=== PATIENT | female | born 1990 | race African-American/Black ===

== ENCOUNTER 2017-09-03 16:34 | Emergency (ER) | payer OTHER ==
[2017-09-03 16:51] VITALS: BP 109/63; PULSE 85; RESP 18; TEMP 99.4
--- NOTE | 2017-09-03 17:12 | ED ---
URI HPI - General Chief Complaint: Recheck/Abnormal Lab/Rx Stated Complaint: congestion Time Seen by Provider: 09/03/17 16:59 Source: patient, RN notes reviewed Mode of arrival: ambulatory Limitations: no limitations - History of Present Illness Initial Comments: This is a 27-year-old female who presents to the emergency department with chief complaint of upper respiratory symptoms. Patient states that yesterday she developed a sore throat, nasal congestion, chest congestion, headache and cough. She denies any fevers or chills, difficulty breathing, abdominal pain, nausea or vomiting, diarrhea or constipation, dysuria or hematuria. She states that she has had a productive cough of clear sputum that appears red tinged. Denies any past medical history or history of asthma. She states that she has felt like she has been wheezing. Denies ear pain or facial pain. - Related Data Home Medications Medication Instructions Recorded Confirmed No Known Home Medications [No 09/03/17 09/03/17 Known Home Medications] Allergies Allergy/AdvReac Type Severity Reaction Status Date / Time No Known Allergies Allergy Verified 09/03/17 16:51 Review of Systems ROS Statement: Those systems with pertinent positive or pertinent negative responses have been documented in the HPI. ROS Other: All systems not noted in ROS Statement are negative. Past Medical History Past Medical History: Pneumonia History of Any Multi-Drug Resistant Organisms: None Reported Past Surgical History: No Surgical Hx Reported Additional Past Surgical History / Comment(s): abdominal Past Psychological History: No Psychological Hx Reported Smoking Status: Current every day smoker Past Alcohol Use History: None Reported Past Drug Use History: None Reported General Exam - General Exam Comments Initial Comments: General: Awake and alert, well-developed; in no apparent distress. Sounds congested while speaking. HEENT: Head atraumatic, normocephalic. Pupils are equal, round and reactive to light. Extraocular movements intact. Oropharynx moist without erythema or exudate. Bilateral TMs are pearly without effusion. Neck: Supple. Normal ROM. Cardiovascular: Regular rate and rhythm. No murmurs, rubs or gallops. Chest symmetrical. Respiratory: Lungs clear to auscultation bilaterally. No wheezes, rales or rhonchi. Normal respiratory effort with no use of accessory muscles. Musculoskeletal: Normal ROM, no tenderness bilateral upper and lower extremities. Ambulating normally. Skin: [place], warm and dry without rashes or lesions. Neurological: Alert and oriented x3. CN II-XII grossly intact. Speech is fluent and answers are appropriate. No focal neuro deficits. Psychiatric: Normal mood and affect. No overt signs of depression or anxiety noted. Limitations: no limitations Course Vital Signs 09/03/17 16:49 Temperature 99.4 F Pulse Rate 85 Respiratory 18 Rate Blood Pressure 109/63 O2 Sat by Pulse 100 Oximetry Medical Decision Making - Medical Decision Making This is a 27-year-old female who presents to the emergency department with chief complaint of upper respiratory symptoms that began yesterday. On physical examination, oropharynx is non-erythematous, bilateral TMs are pearly without effusion and lungs are clear to auscultation bilaterally. Vital signs are stable and patient is afebrile. Chest x-ray was obtained and revealed no acute abnormalities. Patient likely suffering from a viral upper respiratory infection. Recommended rest, increasing fluid intake and [id number] medications. Patient will be discharged home at this time. She is in agreement and voices understanding. All questions were answered. - Radiology Data Radiology results: report reviewed Chest x-ray impression: Normal chest. Disposition Clinical Impression: Upper respiratory infection Disposition: HOME SELF-CARE Condition: Good Instructions: Upper Respiratory Infection (ED) Additional Instructions: Please follow up with primary care provider within 1-2 days. Return to emergency department if symptoms should worsen or any concerns arise. Is patient prescribed a controlled substance at d/c from ED?: No Referrals: None,Stated [Primary Care Provider] - 1-2 days Time of Disposition: 17:34
--- NOTE | 2017-09-03 17:27 | XR ---
EXAMINATION TYPE: XR chest 2V DATE OF EXAM: 09/03/2017 COMPARISON: NONE HISTORY: Cough and congestion TECHNIQUE: Frontal and lateral views of the chest are obtained. FINDINGS: Heart and mediastinum are normal. Lungs are clear. Diaphragm is normal. Bony thorax appear s normal. IMPRESSION: Normal chest
== END 2017-09-03 17:44 | disposition home or self-care (01) ==
LOC: EC 16:34
DX: J06.9 Acute upper respiratory infection, unspecified (principal); F17.200 Nicotine dependence, unspecified, uncomplicated
CPT/HCPCS: 71046; 99283

== ENCOUNTER 2017-10-15 05:14 | Emergency (ER) | payer OTHER ==
[2017-10-15] MEDS ORDERED: PROPARACAINE 0.5% OPHTH DROPS 15 ML BTL ONE (07:20)
[2017-10-15] MEDS ORDERED: PROPARACAINE 0.5% OPHTH DROPS 15 ML BTL RIGHT EYE STA (07:22)
[2017-10-15] MEDS ORDERED: TOBRAMYCIN 0.3% OPHTH DROPS 5 ML BTL RIGHT EYE STA (07:29)
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
[2017-10-15] MEDS ORDERED: ACET/COD 300 MG/30 MG STARTER PACK 6 TAB BTL PO STA (07:51)
[2017-10-15] MEDS ORDERED: Acetaminophen-Codeine 300-30mg TAB PO STA (07:52)
[2017-10-15 08:00] VITALS: BP 120/88; PULSE 82; RESP 18; TEMP 98.1
== END 2017-10-15 07:58 | disposition home or self-care (01) ==
LOC: EC 05:14
DX: H10.9 Unspecified conjunctivitis (principal); F17.200 Nicotine dependence, unspecified, uncomplicated
CPT/HCPCS: 99283

== ENCOUNTER 2018-02-23 06:55 | Emergency (ER) | payer OTHER ==
[2018-02-23 07:00] VITALS: BP 117/80; PULSE 82; RESP 19; TEMP 98.8
--- NOTE | 2018-02-23 07:16 | ED ---
General Adult HPI - General Chief complaint: Dental/Oral Stated complaint: Dental Pain Time Seen by Provider: 02/23/18 07:02 Source: patient, EMS, RN notes reviewed, old records reviewed Mode of arrival: EMS Limitations: no limitations - History of Present Illness Initial comments: 28 yo female presented for evaluation of left lower dental pain. Pain is been present for the past several days. She has noted some swelling in her left face associated with the pain. Patient does not currently have a dentist. She does have poor dentition and reports that this tooth was fractured some time ago. Patient is otherwise healthy, no chronic medical problems. - Related Data Previous Rx's Medication Instructions Recorded Ibuprofen [Motrin] 600 mg PO Q8HR PRN #24 tab 02/23/18 Allergies Allergy/AdvReac Type Severity Reaction Status Date / Time No Known Allergies Allergy Verified 10/15/17 05:20 Review of Systems ROS Statement: Those systems with pertinent positive or pertinent negative responses have been documented in the HPI. ROS Other: All systems not noted in ROS Statement are negative. Past Medical History Past Medical History: Pneumonia History of Any Multi-Drug Resistant Organisms: None Reported Past Surgical History: No Surgical Hx Reported Additional Past Surgical History / Comment(s): abdominal Past Psychological History: No Psychological Hx Reported Smoking Status: Current every day smoker Past Alcohol Use History: None Reported Past Drug Use History: None Reported General Exam Limitations: no limitations General appearance: alert, in no apparent distress Head exam: Present: atraumatic, normocephalic Eye exam: Present: normal appearance, PERRL, EOMI ENT exam: Present: normal oropharynx, other (Poor dentition throughout, left posterior inferior molars are tender to percussion, no abscess, no significant erythema. ) Neck exam: Present: normal inspection, full ROM. Absent: tenderness, meningismus Respiratory exam: Present: normal lung sounds bilaterally. Absent: respiratory distress, wheezes Cardiovascular Exam: Present: regular rate, normal rhythm GI/Abdominal exam: Present: soft. Absent: distended, tenderness Course Vital Signs 02/23/18 06:56 Temperature 98.8 F Pulse Rate 82 Respiratory 19 Rate Blood Pressure 117/80 O2 Sat by Pulse 100 Oximetry Medical Decision Making - Medical Decision Making 28-year-old female with dental pain. Patient does have fracture #17 molar. This is the tooth that is most painful for the patient although she has poor dentition throughout. She was seen at an outside facility yesterday prescribed Hamilton and amoxicillin. She took a Hamilton with minimal improvement and has not taken the amoxicillin although she still has this prescription available. She has not taken Motrin for pain. She will be prescribed Motrin and she will begin her amoxicillin prescription today. She is also given dental clinic follow-up information in the emergency department. Disposition Clinical Impression: Dental caries, Fracture of tooth Disposition: HOME SELF-CARE Condition: Good Instructions: Dental Caries (ED), Toothache (ED) Additional Instructions: Please follow up with dental referral. Prescriptions: Ibuprofen [Motrin] 600 mg PO Q8HR PRN #24 tab PRN Reason: Pain Is patient prescribed a controlled substance at d/c from ED?: No Referrals: None,Stated [Primary Care Provider] - 1-2 days Tyler Santiago MD [REFERRING] - 1-2 days Time of Disposition: 07:15
== END 2018-02-23 07:24 | disposition home or self-care (01) ==
LOC: EC 06:55
DX: S02.5XXA Fracture of tooth (traumatic), initial encounter for closed fracture (principal); K02.9 Dental caries, unspecified; F17.200 Nicotine dependence, unspecified, uncomplicated
CPT/HCPCS: 99283

== ENCOUNTER 2021-01-31 09:23 | Emergency (ER) | payer BC, OTHER ==
[2021-01-31 10:15] VITALS: RESP 18; TEMP 98.9
[2021-01-31 10:54] LABS: Appearance,Urine Cloudy (Clear); Bacteria,Urine Rare /hpf; Bilirubin,Urine Negative (Negative); Blood,Urine Negative (Negative); Color,Urine Yellow; Glucose,Urine (UA) Negative (Negative); Hyaline Casts,Urine 1 /lpf (0-2); Ketones,Urine Trace (Negative); Leukocyte Esterase,Urine Large (Negative); Mucus,Urine Few /hpf; Nitrite,Urine Negative (Negative); Protein,Urine Trace (Negative); RBC,Urine 3 /hpf (0-5); Specific Gravity,Urine 1.025 (1.001-1.035); Squamous Epithelial Cell,Urine 6 /hpf (0-4); WBC,Urine 17 /hpf (0-5)
[2021-01-31] MEDS ORDERED: metroNIDAZOLE 500 MG TAB PO STA (13:34)
[2021-01-31] MEDS ORDERED: cefTRIAXone 250 MG VIAL IM STA (13:34)
[2021-01-31] MEDS ORDERED: AZITHROMYCIN 250 MG TAB PO STA (13:34)
--- NOTE | 2021-01-31 13:42 | ED ---
General Adult HPI - General Chief complaint: Abdominal Pain Stated complaint: vomiting Time Seen by Provider: 01/31/21 11:51 Source: patient, RN notes reviewed Mode of arrival: ambulatory Limitations: no limitations - History of Present Illness Initial comments: Patient is a 31-year-old female presenting to emergency Department with complaints of lower abdominal discomfort, vaginal complaints as well. She states about 2 days ago she noticed some vaginal irritation, white, thick discharge, and foul odor. She complains of some mild urinary frequency but no dysuria. She denies any fevers or chills, no sharp shooting abdominal pain. She does admit to being with a new partner, having unprotected intercourse. She is concerned for an STD. She denies any nausea or vomiting. She has no further complaints at this time. Upon arrival to the ER her vitals are stable. - Related Data Home Medications Medication Instructions Recorded Confirmed No Known Home Medications 01/31/21 01/31/21 Allergies Allergy/AdvReac Type Severity Reaction Status Date / Time No Known Allergies Allergy Verified 01/31/21 13:19 Review of Systems ROS Statement: Those systems with pertinent positive or pertinent negative responses have been documented in the HPI. ROS Other: All systems not noted in ROS Statement are negative. Past Medical History Past Medical History: Pneumonia History of Any Multi-Drug Resistant Organisms: None Reported Past Surgical History: No Surgical Hx Reported Additional Past Surgical History / Comment(s): abdominal Past Psychological History: No Psychological Hx Reported Smoking Status: Current every day smoker Past Alcohol Use History: None Reported Past Drug Use History: None Reported General Exam - General Exam Comments Initial Comments: GENERAL: Patient is well-developed and well-nourished. Patient is nontoxic and in no acute distress. HEAD: Atraumatic, normocephalic. EYES: Pupils equal round and reactive to light, extraocular movements intact, sclera anicteric, conjunctiva are normal. Eyelids were unremarkable. LUNGS: Unlabored respirations. Breath sounds clear to auscultation bilaterally and equal. No wheezes rales or rhonchi. HEART: Regular rate and rhythm without murmurs, rubs or gallops. ABDOMEN: Soft, nontender, normoactive bowel sounds. No guarding, no rebound. No masses appreciated. MUSCULOSKELETAL: Normal extremities with adequate strength and normal range of motion, no pitting or edema. No clubbing or cyanosis. NEUROLOGICAL: Patient is alert and oriented x 3. SKIN: Warm, Dry, normal turgor, no rashes or lesions noted. Limitations: no limitations External exam: Present: normal external exam Speculum exam: Present: cervical discharge (small amounts of white discharge/slight odor present). Absent: vaginal bleeding, foreign body By manual exam: Present: normal by manual exam Course Vital Signs 01/31/21 10:11 Temperature 98.9 F Pulse Rate 73 Respiratory 18 Rate Blood Pressure 119/71 O2 Sat by Pulse 100 Oximetry Medical Decision Making - Medical Decision Making Patient is a 31-year-old female presenting for vaginal irritation, abnormal discharge over the past 2-3 days. No fevers, or vitals are stable. No snuff can abdominal pain on palpation. Pelvic exam revealed whitish discharge, slight odor. Urine showed a few WBCs, rare bacteria. Urine culture is pending. Trichomonas swab is positive. I discussed these findings with the patient. She would like to be treated for gonorrhea and Chlamydia as a precaution. These labs are still pending as well as genital culture. Patient will be given a course of Flagyl, Rocephin, azithromycin. She is stable for discharge at this time. We discussed using protection, having partner tested and treated as well. She is agreeable to this plan of care and she is stable for discharge. - Lab Data Lab Results 01/31/21 01/31/21 01/31/21 Range/Units 10:19 12:29 12:29 Urine Color Yellow Urine Appearance Cloudy H (Clear) Urine pH 6.0 (5.0-8.0) Ur Specific [place] 1.025 (1.001-1.035) Urine Protein Trace H (Negative) Urine Glucose (UA) Negative (Negative) Urine Ketones Trace H (Negative) Urine Blood Negative (Negative) Urine Nitrite Negative (Negative) Urine Bilirubin Negative (Negative) Urine Urobilinogen 2.0 (<2.0) mg/dL Ur Leukocyte Esterase Large H (Negative) Urine RBC 3 (0-5) /hpf Urine WBC 17 H (0-5) /hpf Ur Squamous Epith Cells 6 H (0-4) /hpf Urine Bacteria Rare H (None) /hpf Hyaline Casts 1 (0-2) /lpf Urine Mucus Few H (None) /hpf Urine HCG, Qual Not Detected (Not Detectd) Trichomonas Ag (Rapid) Positive H (Negative) Disposition Clinical Impression: Vaginal discharge, Trichomonas infection Disposition: HOME SELF-CARE Condition: Stable Instructions (If sedation given, give patient instructions): Trichomoniasis (ED) Additional Instructions: Please return to the Emergency Department if symptoms worsen or any other concerns. Gonorrhea, chlamydia, genital culture swabs are still pending at this time. You were treated today for Trichomonas. Gonorrhea and chlamydia were treated as a precaution. Partner should be treated as well. Please follow-up with your [employer] TECHNICIAN. Is patient prescribed a controlled substance at d/c from ED?: No Referrals: None,Stated [Primary Care Provider] - 1-2 days Time of Disposition: 13:42
[2021-01-31 14:31] VITALS: BP 120/81; PULSE 72
[2021-02-01 14:53] LABS: C. trachomatis,PCR Negative (Neg,Equiv); Chlamydia trachomatis Source Cervix; N. gonorrhoeae,PCR Negative (Neg,Equiv); Neisseria Source Cervix
== END 2021-01-31 14:27 | disposition home or self-care (01) ==
LOC: EC 09:23
DX: N89.8 Other specified noninflammatory disorders of vagina (principal); A59.01 Trichomonal vulvovaginitis; F17.200 Nicotine dependence, unspecified, uncomplicated
CPT/HCPCS: 96372; 81001; 81025; 87808; 87491; 87591; 87070; 87086; 99284; J0696

== ENCOUNTER 2021-05-09 14:48 | Emergency (ER) | payer BC ==
[2021-05-09 16:13] VITALS: BP 123/65; PULSE 78; RESP 18; TEMP 99.2
--- NOTE | 2021-05-09 17:18 | ED ---
URI HPI - General Chief Complaint: Upper Respiratory Infection Stated Complaint: Covid Symptoms Time Seen by Provider: 05/09/21 17:01 Source: patient, RN notes reviewed Mode of arrival: ambulatory Limitations: no limitations - History of Present Illness Initial Comments: This is a pleasant 31-year-old female presents the emergency department c omplaining of mild body aches, subjective fever since yesterday. Patient states that her symptoms actually seemed to get better today. Patient tested positive for COVID-19 in triage. Patient has no significant past medical history. No headache, no changes in vision or hearing, no sore throat or difficulty with speech, no neck pain, no chest pain or shortness of breath, no abdominal pain, no nausea or vomiting, no changes in urination or bowel movements, no numbness or tingling, no extremity pain, no skin rashes or lesions. Patient denies chance of - Related Data Home Medications Medication Instructions Recorded Confirmed No Known Home Medications 01/31/21 01/31/21 Allergies Allergy/AdvReac Type Severity Reaction Status Date / Time No Known Allergies Allergy Verified 05/09/21 16:13 Review of Systems ROS Statement: Those systems with pertinent positive or pertinent negative responses have been documented in the HPI. ROS Other: All systems not noted in ROS Statement are negative. Past Medical History Past Medical History: Pneumonia History of Any Multi-Drug Resistant Organisms: None Reported Past Surgical History: No Surgical Hx Reported Additional Past Surgical History / Comment(s): abdominal Past Psychological History: No Psychological Hx Reported Smoking Status: Current every day smoker Past Alcohol Use History: None Reported Past Drug Use History: None Reported General Exam - General Exam Comments Initial Comments: Nontoxic appearing female in no acute distress. Limitations: no limitations General appearance: alert, in no apparent distress Head exam: Present: atraumatic, normocephalic, normal inspection Eye exam: Present: normal appearance, PERRL, EOMI. Absent: scleral icterus, conjunctival injection, periorbital swelling ENT exam: Present: normal exam, mucous membranes moist Neck exam: Present: normal inspection. Absent: tenderness, meningismus, lymphadenopathy Respiratory exam: Present: normal lung sounds bilaterally. Absent: respiratory distress, wheezes, rales, rhonchi, stridor Cardiovascular Exam: Present: regular rate, normal rhythm, normal heart sounds. Absent: systolic murmur, diastolic murmur, rubs, gallop, clicks GI/Abdominal exam: Present: soft, normal bowel sounds. Absent: distended, tenderness, guarding, rebound, rigid Extremities exam: Present: normal inspection, full ROM, normal capillary refill. Absent: tenderness, pedal edema, joint swelling, calf tenderness Back exam: Present: normal inspection Neurological exam: Present: alert, oriented X3, CN II-XII intact Psychiatric exam: Present: normal affect, normal mood Skin exam: Present: warm, dry, intact, normal color. Absent: rash Course Vital Signs 05/09/21 16:11 Temperature 99.2 F Pulse Rate 78 Respiratory 18 Rate Blood Pressure 123/65 O2 Sat by Pulse 100 Oximetry Medical Decision Making - Medical Decision Making Patient presents with symptoms consistent with viral syndrome. Tested positive for COVID-19. Patient in no distress. Does not appear to be systemically ill. Discussed quarantine measures in detail. Patient voiced understanding. All questions answered. Patient was told to return to the ER for any signs or symptoms worsen. Told to return immediately if any other problems arise. All questions answered. Treatment plan discussed. Patient in agreement - Lab Data Lab Results 05/09/21 Range/Units 16:17 Coronavirus (PCR) Detected A (Not Detectd) Disposition Clinical Impression: COVID-19 Disposition: HOME SELF-CARE Condition: Good Instructions (If sedation given, give patient instructions): Coronavirus Disease 2019 (COVID-19) Additional Instructions: SELF QUARANTINE DISCHARGE: As you are at risk for symptoms due to coronavirus, please stay home and stay away from others as much as possible. Please maintain social distance of 6 feet if possible. You should not return to work until at least 3 days (72 hours) have passed since recovery of symptoms. This defined as resolution of fever without the use of fever reducing medicines and improvement in respiratory symptoms (e.g,, cough, shortness of breath) and, At least 5 days have passed since symptoms first appeared. More information about what to do if you are sick can be found on the CDC website at https://www.cdc.gov/coronavirus/2019-ncov/su-odu-kta-sick/fcvsx-njwr-rqfg.html Expect the symptoms to last for 7-14 days from onset. Use acetaminophen (Tylenol) as needed for discomfort. You can take a maximum of 1 gram every 6 hours for discomfort, with your total dose in 24 hours not exceeding 4 grams. Be sure to maintain hydration. Drink continuous water and/or items high in vitamin C, such as orange juice and/or lemonade. Unless you have high blood pressure, you may consider Sudafed (which is [id number]) for nasal congestion. I would suggest that a short acting Sudafed rather than the 24 hour Sudafed. For a cough you may take Mucinex or Robitussin. Also consider the use of Vicks Vapor Rub or your chest when you sleep. Use a humidifier that is cleaned frequently, in the bedroom at night. For Nausea /Vomiting/Diarrhea associated with your Illness: o Small frequent sips of room temperature liquids. o Diet: [employer] - If you are still experiencing discomfort and/or nausea please slowly advancing your diet using the BRAT Diet = bananas, rice, apples/apple sauce, toast. o With diarrhea avoid any dairy for 48 hours after symptoms resolved. o Continue with activity as tolerated. If your symptoms do get worse and you believe that the upper respiratory infection has developed into something else, such as pneumonia or severe dehydration, please return to the emergency department or follow-up with your primary care. But expect to be symptomatic for the days as indicated above Is patient prescribed a controlled substance at d/c from ED?: No Referrals: Francisco Kapoor MD [STAFF PHYSICIAN] - 05/16/21 Time of Disposition: 17:06 Decision Time: 17:08
== END 2021-05-09 17:49 | disposition home or self-care (01) ==
LOC: EC 14:48
DX: U07.1 COVID-19 (principal); F17.200 Nicotine dependence, unspecified, uncomplicated
CPT/HCPCS: 87635; 99283

== ENCOUNTER 2021-10-13 10:16 | Emergency (ER) | payer SELFPAY ==
[2021-10-13 10:22] VITALS: BP 117/74; PULSE 73; RESP 18; TEMP 98.5
[2021-10-13] MEDS ORDERED: ACETAMINOPHEN TAB 500 MG TAB PO STA (10:31)
--- NOTE | 2021-10-13 10:36 | ED ---
General Adult HPI - General Chief complaint: Upper Respiratory Infection Stated complaint: Headache Time Seen by Provider: 10/13/21 10:25 Source: patient, RN notes reviewed, old records reviewed Mode of arrival: ambulatory Limitations: no limitations - History of Present Illness Initial comments: Nontoxic-appearing 31-year-old female presents to the emergency room with 2 days of cough, headache, nasal congestion and chills for 2 days. She has no medical history. She does smoke a pack a day. -: days(s) (2) Location: head Radiation: non-radiation Severity scale (1-10): 4 Quality: aching Consistency: constant Improves with: none Worsens with: other (cough) Associated Symptoms: cough, fever/chills, headaches, other (congestion) Treatments Prior to Arrival: none - Related Data Previous Rx's Medication Instructions Recorded Azithromycin [Zithromax Z Pack] 1 tab PO DIRECTED #6 tab 10/13/21 Allergies Allergy/AdvReac Type Severity Reaction Status Date / Time No Known Allergies Allergy Verified 10/13/21 11:38 Review of Systems ROS Statement: Those systems with pertinent positive or pertinent negative responses have been documented in the HPI. ROS Other: All systems not noted in ROS Statement are negative. Past Medical History Past Medical History: Pneumonia History of Any Multi-Drug Resistant Organisms: None Reported Past Surgical History: No Surgical Hx Reported Additional Past Surgical History / Comment(s): abdominal Past Psychological History: No Psychological Hx Reported Smoking Status: Current every day smoker Past Alcohol Use History: None Reported Past Drug Use History: None Reported General Exam Limitations: no limitations General appearance: alert, in no apparent distress Head exam: Present: atraumatic, normocephalic, normal inspection Eye exam: Absent: conjunctival injection, periorbital swelling ENT exam: Present: normal exam, normal oropharynx, mucous membranes moist, other (Abrasion under the left nostril) Expanded Mouth exam: Present: tongue normal, tongue elevation. Absent: drooling, trismus, muffled voice Throat exam: negative: tonsillar erythema, tonsillomegaly, tonsillar exudate, R peritonsillar mass, L peritonsillar mass Neck exam: Present: normal inspection, full ROM. Absent: tenderness, meningismus, lymphadenopathy Respiratory exam: Present: normal lung sounds bilaterally. Absent: respiratory distress, accessory muscle use Cardiovascular Exam: Present: regular rate, normal rhythm GI/Abdominal exam: Present: soft. Absent: distended, tenderness, rigid Extremities exam: Present: full ROM, normal capillary refill. Absent: tenderness, pedal edema Back exam: Absent: tenderness, CVA tenderness (R), CVA tenderness (L) Neurological exam: Present: alert, oriented X3, normal gait Psychiatric exam: Present: normal affect, normal mood Skin exam: Present: warm, dry. Absent: cyanosis, diaphoretic, pallor Course Vital Signs 10/13/21 10:20 Temperature 98.5 F Pulse Rate 73 Respiratory 18 Rate Blood Pressure 117/74 O2 Sat by Pulse 98 Oximetry Medical Decision Making - Medical Decision Making X-ray shows a patchy right midlung opacity, pneumonia not excluded. Coronavirus and influenza swabs are negative. Patient will be treated for com munity-acquired pneumonia with a Z-Jovan. She was directed to decrease her smoking and follow-up with her primary care doctor next week. Return to the emergency room with any new or concerning symptoms including increased difficulty breathing or chest pain. She was requesting 2 days off work which was provided. Case discussed with Dr. Heath. - Lab Data Lab Results 10/13/21 10/13/21 Range/Units 10:43 10:43 Coronavirus (PCR) Not Detected (Not Detectd) Influenza Type A RNA Not Detected (Not Detectd) Influenza Type B (PCR) Not Detected (Not Detectd) Disposition Clinical Impression: Pneumonia Disposition: HOME SELF-CARE Condition: Good Instructions (If sedation given, give patient instructions): Bacterial Pneumonia (ED) Additional Instructions: Take Zithromax as prescribed. Decreased your smoking and increase your fluid intake. Tylenol and/or Motrin as needed for any fevers or chills. Follow-up with the primary care doctor next week. Prescriptions: Azithromycin [Zithromax Z Pack] 1 tab PO DIRECTED #6 tab Is patient prescribed a controlled substance at d/c from ED?: No Referrals: Nonstaff,Physician [Primary Care Provider] - 1-2 days Time of Disposition: 11:27
--- NOTE | 2021-10-13 10:57 | XR ---
EXAMINATION TYPE: XR chest 2V DATE OF EXAM: 10/13/2021 COMPARISON: 09/03/2017 HISTORY: 31-year-old female with cough TECHNIQUE: PA and lateral views FINDINGS: Heart normal size. Aorta and pulmonary vasculature within normal limits. Focal patchy right midlung o pacity. No other consolidation or pleural effusion. IMPRESSION: Some patchy right midlung opacity. Developing pneumonia not excluded.
== END 2021-10-13 11:40 | disposition home or self-care (01) ==
LOC: EC 10:16
DX: J18.9 Pneumonia, unspecified organism (principal); F17.200 Nicotine dependence, unspecified, uncomplicated; Z20.822 Contact with and (suspected) exposure to COVID-19
CPT/HCPCS: 71046; 87502; 87635

== ENCOUNTER 2021-11-16 16:27 | Emergency (ER) | payer SELFPAY ==
[2021-11-16 16:35] VITALS: BP 125/71; PULSE 84; RESP 20; TEMP 98.2
--- NOTE | 2021-11-16 16:51 | ED ---
Female Urogenital HPI - General Chief complaint: Urogenital Stated complaint: Headache Source: patient Mode of arrival: ambulatory Limitations: no limitations - History of Present Illness Initial comments: Patient is a pleasant 31-year-old -[place] female presents the emergency room with complaints of exposure to trichomonas from her partner. She reports that she was advised by her girlfriend earlier today that she had just tested positive for trichomonas from some laboratory studies that were completed earlier in the month. She reports that she has had trichomonas in the past and completed treatment previously and wishes to await testing results prior to initiation of any treatment at this time. She is agreeable to testing for chlamydia and gonorrhea as well however declines any serological testing including HIV, hepatitis or syphilis. She has a past medical history significant for pneumonia otherwise is overall healthy and is not currently on any medications on a regular basis. - Related Data Previous Rx's Medication Instructions Recorded Azithromycin [Zithromax Z Pack] 1 tab PO DIRECTED #6 tab 10/13/21 Allergies Allergy/AdvReac Type Severity Reaction Status Date / Time No Known Allergies Allergy Verified 11/16/21 16:35 Review of Systems ROS Statement: Those systems with pertinent positive or pertinent negative responses have been documented in the HPI. ROS Other: All systems not noted in ROS Statement are negative. Past Medical History Past Medical History: Pneumonia History of Any Multi-Drug Resistant Organisms: None Reported Past Surgical History: No Surgical Hx Reported Additional Past Surgical History / Comment(s): abdominal Past Psychological History: No Psychological Hx Reported Smoking Status: Current every day smoker Past Alcohol Use History: None Reported Past Drug Use History: None Reported General Exam Limitations: no limitations General appearance: alert, in no apparent distress Head exam: Present: atraumatic, normocephalic, normal inspection Eye exam: Present: normal appearance, PERRL, EOMI. Absent: scleral icterus, conjunctival injection, periorbital swelling ENT exam: Present: normal exam, mucous membranes moist Neck exam: Present: normal inspection, full ROM Respiratory exam: Absent: respiratory distress, accessory muscle use GI/Abdominal exam: Present: soft, normal bowel sounds. Absent: distended, tenderness, guarding, rebound, rigid Rectal exam: Present: deferred Extremities exam: Present: normal inspection, full ROM, normal capillary refill. Absent: tenderness, pedal edema, joint swelling, calf tenderness Back exam: Present: normal inspection Neurological exam: Present: alert, oriented X3, CN II-XII intact Psychiatric exam: Present: normal affect, normal mood Skin exam: Present: warm, dry, intact, normal color. Absent: rash Course Vital Signs 11/16/21 16:32 Temperature 98.2 F Pulse Rate 84 Respiratory 20 Rate Blood Pressure 125/71 O2 Sat by Pulse 100 Oximetry Medical Decision Making - Medical Decision Making Will obtain urine for gonorrhea and chlamydia incompletes for trichomonas. She denies impaired treatment and wishes to wait for testing results prior to starting treatment. She has no symptoms of PID at this time. We will allow discharge home at this time and will call patient regarding results and start on antibiotic therapy as appropriate if positive results. Signs and symptoms of PID discussed with patient and advised when to seek immediate medical attention. Advised against intercourse until known STD results and if needed completion of treatment. Case discussed with Dr. Ruiz Disposition Clinical Impression: Encounter for screening for infections with a predominantly sexual mode of transmission Disposition: HOME SELF-CARE Condition: Stable Instructions (If sedation given, give patient instructions): Trichomoniasis (ED) Additional Instructions: Please refrain from sexual intercourse until results of STD testing and completion of treatment if needed. If any signs or symptoms of pelvic inflammatory disease or sexually transmitted diseases such as pain, abnormal discharge fevers or chills please return to the emergency room. Please return to the Emergency Department if symptoms worsen or any other concerns. Will call with results regarding testing completed today Is patient prescribed a controlled substance at d/c from ED?: No Referrals: None,Stated [Primary Care Provider] - 1-2 days Time of Disposition: 17:31
[2021-11-17 15:38] LABS: C. trachomatis,PCR Negative (Neg,Equiv); Chlamydia trachomatis Source Urine; N. gonorrhoeae,PCR Negative (Neg,Equiv); Neisseria Source Urine
== END 2021-11-16 17:36 | disposition home or self-care (01) ==
LOC: EC 16:27
DX: Z11.3 Encounter for screening for infections with a predominantly sexual mode of transmission (principal); F17.200 Nicotine dependence, unspecified, uncomplicated
CPT/HCPCS: 87491; 87591; 87808; 99283